=== PATIENT | female | born 1985 ===

== ENCOUNTER 2021-01-17 13:17 | Inpatient (IN) | payer OTHER ==
[2021-01-17] MEDS ORDERED: Lorazepam 2 MG/ML VIAL ONE ×2 (13:37→13:43)
[2021-01-17 13:44] LABS: #Basophils 0.1 thou/uL (0.0-0.2); #Eosinphils 0.1 thou/uL (0.0-0.7); #Lymphocytes 2.6 thou/uL (1.20-3.40); #Monocytes 0.5 thou/uL (0.11-0.59); #Neutrophils 6.7 thou/uL (1.40-6.50); %Basophils 1.2 % (0.0-1.0); %Eosinophils 1.5 % (0.0-10.0); %Lymphocytes 26.1 % (21.0-51.0); %Monocytes 4.8 % (0.0-10.0); %Neutrophils 66.4 % (42.0-75.0); Hemoglobin 12.8 g/dL (12.0-16.0); Mean Corpuscular HGB CONC 33.9 g/dL (32.0-36.0); Mean Corpuscular Hemoglobin 31.9 pg (27.0-31.0); Mean Corpuscular Volume 94.3 fL (78.0-98.0); Mean Platelet Volume 9.3 fL (7.4-10.4); Platelet Count 149 thou/uL (130-400); RBC Distribution Width 11.7 % (11.5-14.5); White Blood Cell (WBC) Count 10.1 thou/uL (4.8-10.8)
[2021-01-17 13:47] LABS: Actual Bicarbonate (HCO3a) 17.2 mEq/L (22-28); Analyzer IN Cardio ER; Base Excess (BEa) -6.7 mEq/L (-2.0 to +3.0); CO2 Tension 29.7 mmHg (35.0-45.0); Calcium, Ionized (arterial) 1.16 mmol/L (1.12-1.30); Carboxyhemoglobin (COHb) 2.4 gm% (0.0-3.0); Hemoglobin (Hb) 13.1 g/dL (12.0-16.0); O2 Tension (PaO2), arterial 238.6 mmHg (80.0-100.0); Potassium - ABG Lab 3.03 mmol/L (3.70-5.30); pH, Arterial 7.38 (7.35-7.45)
[2021-01-17 13:48] LABS: ALV-art Gradient 9.475 mmHg (0-20); Puncture Site RRA
[2021-01-17] MEDS ORDERED: Magnesium 2 GM/50 ML BAG (IN WATER) ONE (13:48)
[2021-01-17 13:57] LABS: BHCG - Serum Negative (NEGATIVE); Pregs Control Background? CLEAR/WHITE (CLR/WHITE); Pregs Control Bar Appear? YES (CONTROL BAR)
[2021-01-17 14:07] LABS: Acetaminophen Less than 6.0 mcg/mL (10.0-30.0); Alcohol Less than 10 mg/dL (Less than 10); Salicylate Less than 8.0 mg/dL (15.0-30.0)
[2021-01-17 14:08] LABS: ALT (SGPT) 15 U/L (8-55); AST (SGOT) 20 U/L (5-34); Albumin 4.5 g/dL (3.5-5.0); Alkaline Phosphatase 64 U/L (40-110); Anion Gap 15 mmol/L (10-20); BUN (Urea Nitrogen) 11 mg/dL (7.0-18.7); Bilirubin, Total 0.9 mg/dL (0.2-1.2); CK (CPK) 243 U/L (29-168); Calc. Creatinine Clearance 0 mL/min (70-130); Calcium 9.8 mg/dL (7.8-10.44); Carbon Dioxide 18 mmol/L (22-29); Chloride 108 mmol/L (98-107); Globulin 3.1 g/dL (2.4-3.5); Glucose 116 mg/dL (70-105); Potassium 3.2 mmol/L (3.5-5.1); Protein, Total 7.6 g/dL (6.0-8.3); Sodium 138 mmol/L (136-145)
[2021-01-17 14:23] LABS: Amphetamine Not Detected (NotDetected); Barbiturates Screen Not Detected (NotDetected); Benzodiazepine Screen Detected (NotDetected); Cocaine Metabolite Screen Not Detected (NotDetected); Medtox Control Line Valid? VALID (VALID); Medtox Reader # READER 4; Methadone Not Detected (NotDetected); Methamphetamine Not Detected (NotDetected); Opiate Screen Not Detected (NotDetected); Oxycodone Screen Not Detected (NotDetected); Phencyclidine (PCP) Not Detected (NotDetected); THC/Cannabinoid Screen Detected (NotDetected); Tricyclic Screen Detected (NotDetected)
[2021-01-17] MEDS ORDERED: Succinylcholine 200 MG/10 ml SYRINGE FS ONE (15:05)
[2021-01-17] MEDS ORDERED: Ondansetron PF 4 MG/2 ML Vial ONE (15:05)
[2021-01-17] MEDS ORDERED: Potassium Bicarbonate/Cit Ac 25 MEQ TAB ONE ×2 (15:07)
[2021-01-17] MEDS ORDERED: Acetaminophen 325 MG TAB PO PRN (15:14)
[2021-01-17] MEDS ORDERED: HYDROcodone/Acetaminophen 5/325 mg Tablet PO PRN (15:14)
[2021-01-17] MEDS ORDERED: Ondansetron PF 4 MG/2 ML Vial IVP PRN (15:14)
[2021-01-17] MEDS ORDERED: Senokot S 8.6-50 MG TAB PO PRN (15:14)
[2021-01-17] MEDS ORDERED: HUMULIN R 100 UNITS in Sodium Chloride 0.9% 100 ML IVPB SCH (15:30)
[2021-01-17 16:08] LABS: SARS-CoV-2 NAA Rapid Test Not Detected (NotDetected)
[2021-01-17] MEDS: Sodium Chloride 0.9% 1,000 ML IV SCH ×2 (17:31→22:37)
[2021-01-17 17:34] VITALS: BMI 18.9
[2021-01-17] MEDS ORDERED: Electrolyte Replacement Protocol 1 EACH FS PRN (17:45)
[2021-01-17] MEDS: Famotidine/PF 20 mg/2ml Vial SLOW IVP SCH (21:14)
[2021-01-17 22:29] LABS: Anion Gap 9 mmol/L (10-20); BUN (Urea Nitrogen) 8 mg/dL (7.0-18.7); Calc. Creatinine Clearance 95 mL/min (70-130); Calcium 8.8 mg/dL (7.8-10.44); Carbon Dioxide 21 mmol/L (22-29); Chloride 113 mmol/L (98-107); Glucose 86 mg/dL (70-105); Potassium 3.5 mmol/L (3.5-5.1); Sodium 139 mmol/L (136-145)
[2021-01-17] MEDS: Potassium Chloride 20 MEQ in Premix Bag 1 BAG IVPB SCH (23:10)
[2021-01-18] MEDS: Potassium Chloride 20 MEQ in Premix Bag 1 BAG IVPB SCH ×3 (01:15→08:20)
[2021-01-18 04:19] LABS: ALT (SGPT) 14 U/L (8-55); AST (SGOT) 18 U/L (5-34); Albumin 3.8 g/dL (3.5-5.0); Alkaline Phosphatase 54 U/L (40-110); Anion Gap 11 mmol/L (10-20); BUN (Urea Nitrogen) 7 mg/dL (7.0-18.7); Bilirubin, Total 1.2 mg/dL (0.2-1.2); Calc. Creatinine Clearance 88 mL/min (70-130); Calcium 9.1 mg/dL (7.8-10.44); Carbon Dioxide 18 mmol/L (22-29); Chloride 114 mmol/L (98-107); Globulin 2.6 g/dL (2.4-3.5); Glucose 89 mg/dL (70-105); Magnesium 1.9 mg/dL (1.6-2.6); Potassium 3.8 mmol/L (3.5-5.1); Protein, Total 6.4 g/dL (6.0-8.3); Sodium 139 mmol/L (136-145)
[2021-01-18 04:49] LABS: Band 13 % (5-11); Eosinophils 3 % (0-10); Hemoglobin 11.2 g/dL (12.0-16.0); Lymphocytes 13 % (21-51); MDiff Complete? YES; Mean Corpuscular HGB CONC 32.8 g/dL (32.0-36.0); Mean Corpuscular Hemoglobin 30.8 pg (27.0-31.0); Mean Corpuscular Volume 93.8 fL (78.0-98.0); Mean Platelet Volume 9.5 fL (7.4-10.4); Monocytes 6 % (0-10); Neutrophil 64 % (42-75); Platelet Count 150 thou/uL (130-400); RBC Distribution Width 11.7 % (11.5-14.5); Red Blood Cell (RBC) Count 3.62 mill/uL (4.20-5.40); White Blood Cell (WBC) Count 12.1 thou/uL (4.8-10.8)
[2021-01-18] MEDS: Sodium Chloride 0.9% 1,000 ML IV SCH ×3 (04:49→22:47)
[2021-01-18] MEDS ORDERED: Magnesium 2 GM/50 ML 2 GM in Premix Bag 1 BAG IVPB SCH (05:45)
[2021-01-18 09:03] LABS: Chloride 113 mmol/L (98-107); Potassium 4.1 mmol/L (3.5-5.1); Sodium 138 mmol/L (136-145)
[2021-01-18 09:04] LABS: Calcium 9.3 mg/dL (7.8-10.44); Glucose 98 mg/dL (70-105)
[2021-01-18 09:06] LABS: Anion Gap 10 mmol/L (10-20); Carbon Dioxide 19 mmol/L (22-29)
[2021-01-18 09:07] LABS: Calc. Creatinine Clearance 89 mL/min (70-130)
[2021-01-18 09:08] LABS: BUN (Urea Nitrogen) 5 mg/dL (7.0-18.7)
[2021-01-18] MEDS: Famotidine/PF 20 mg/2ml Vial SLOW IVP SCH ×2 (09:41→21:50)
[2021-01-18] MEDS: Enoxaparin Sodium 40 MG/0.4 ML SYRINGE SC SCH (09:41)
[2021-01-18] MEDS ORDERED: Lorazepam 2 MG/ML VIAL ONE (10:17)
[2021-01-18] MEDS ORDERED: Lorazepam 2 MG/ML VIAL SLOW IVP SCH (10:45)
[2021-01-18 13:27] LABS: Anion Gap 12 mmol/L (10-20); BUN (Urea Nitrogen) 4 mg/dL (7.0-18.7); Calc. Creatinine Clearance 94 mL/min (70-130); Calcium 9.5 mg/dL (7.8-10.44); Carbon Dioxide 18 mmol/L (22-29); Chloride 112 mmol/L (98-107); Glucose 102 mg/dL (70-105); Sodium 138 mmol/L (136-145)
[2021-01-18 17:31] LABS: Anion Gap 17 mmol/L (10-20); BUN (Urea Nitrogen) 4 mg/dL (7.0-18.7); Calc. Creatinine Clearance 89 mL/min (70-130); Carbon Dioxide 14 mmol/L (22-29); Chloride 111 mmol/L (98-107); Glucose 94 mg/dL (70-105); Potassium 5.2 mmol/L (3.5-5.1); Sodium 137 mmol/L (136-145)
[2021-01-18 21:47] LABS: Anion Gap 15 mmol/L (10-20); BUN (Urea Nitrogen) 4 mg/dL (7.0-18.7); Calc. Creatinine Clearance 84 mL/min (70-130); Carbon Dioxide 16 mmol/L (22-29); Chloride 110 mmol/L (98-107); Glucose 97 mg/dL (70-105); Potassium 3.8 mmol/L (3.5-5.1); Sodium 137 mmol/L (136-145)
[2021-01-18] MEDS: Citalopram 20 MG TAB PO SCH (21:50)
[2021-01-18] MEDS: traZODone HCl 50 MG TAB PO SCH (21:51)
[2021-01-18] MEDS ORDERED: Lorazepam 0.5 MG TAB PO SCH (23:15)
[2021-01-18] MEDS ORDERED: Ziprasidone 20 MG VIAL IM SCH ×2 (23:30→23:45)
[2021-01-18] MEDS ORDERED: Sterile Water 10 ML VIAL FS SCH (23:30)
[2021-01-19 02:20] LABS: Anion Gap 11 mmol/L (10-20); BUN (Urea Nitrogen) 5 mg/dL (7.0-18.7); Calc. Creatinine Clearance 93 mL/min (70-130); Carbon Dioxide 19 mmol/L (22-29); Chloride 111 mmol/L (98-107); Glucose 89 mg/dL (70-105); Potassium 3.7 mmol/L (3.5-5.1); Sodium 137 mmol/L (136-145)
[2021-01-19 03:44] LABS: Calcium 9.1 mg/dL (7.8-10.44)
[2021-01-19 05:57] LABS: Anion Gap 11 mmol/L (10-20); BUN (Urea Nitrogen) 6 mg/dL (7.0-18.7); Calc. Creatinine Clearance 88 mL/min (70-130); Calcium 8.5 mg/dL (7.8-10.44); Carbon Dioxide 19 mmol/L (22-29); Chloride 113 mmol/L (98-107); Glucose 84 mg/dL (70-105); Potassium 3.8 mmol/L (3.5-5.1); Sodium 139 mmol/L (136-145)
[2021-01-19] MEDS ORDERED: Magnesium 2 GM/50 ML 2 GM in Premix Bag 1 BAG IVPB SCH (06:30)
[2021-01-19] MEDS: Sodium Chloride 0.9% 1,000 ML IV SCH (06:56)
[2021-01-19] MEDS: Enoxaparin Sodium 40 MG/0.4 ML SYRINGE SC SCH (09:05)
[2021-01-19] MEDS: Famotidine/PF 20 mg/2ml Vial SLOW IVP SCH (09:05)
[2021-01-19 10:38] LABS: Anion Gap 12 mmol/L (10-20); BUN (Urea Nitrogen) 6 mg/dL (7.0-18.7); Calc. Creatinine Clearance 80 mL/min (70-130); Calcium 8.7 mg/dL (7.8-10.44); Carbon Dioxide 19 mmol/L (22-29); Chloride 110 mmol/L (98-107); Glucose 137 mg/dL (70-105); Potassium 3.7 mmol/L (3.5-5.1); Sodium 137 mmol/L (136-145)
[2021-01-19 13:43] LABS: Anion Gap 13 mmol/L (10-20); BUN (Urea Nitrogen) 7 mg/dL (7.0-18.7); Calc. Creatinine Clearance 81 mL/min (70-130); Calcium 8.8 mg/dL (7.8-10.44); Carbon Dioxide 19 mmol/L (22-29); Chloride 107 mmol/L (98-107); Glucose 122 mg/dL (70-105); Potassium 3.8 mmol/L (3.5-5.1); Sodium 135 mmol/L (136-145)
[2021-01-19 17:13] LABS: Anion Gap 13 mmol/L (10-20); BUN (Urea Nitrogen) 8 mg/dL (7.0-18.7); Calc. Creatinine Clearance 81 mL/min (70-130); Calcium 9.2 mg/dL (7.8-10.44); Carbon Dioxide 19 mmol/L (22-29); Chloride 107 mmol/L (98-107); Glucose 106 mg/dL (70-105); Potassium 3.9 mmol/L (3.5-5.1); Sodium 135 mmol/L (136-145)
[2021-01-19 21:40] LABS: Anion Gap 11 mmol/L (10-20); BUN (Urea Nitrogen) 9 mg/dL (7.0-18.7); Calc. Creatinine Clearance 84 mL/min (70-130); Carbon Dioxide 20 mmol/L (22-29); Chloride 107 mmol/L (98-107); Glucose 101 mg/dL (70-105); Potassium 4.1 mmol/L (3.5-5.1); Sodium 134 mmol/L (136-145)
[2021-01-19] MEDS: Famotidine 20 MG TAB PO SCH (21:41)
[2021-01-19] MEDS: traZODone HCl 50 MG TAB PO SCH (21:41)
[2021-01-19] MEDS: Citalopram 20 MG TAB PO SCH (21:41)
[2021-01-20 01:33] LABS: Anion Gap 12 mmol/L (10-20); BUN (Urea Nitrogen) 9 mg/dL (7.0-18.7); Calc. Creatinine Clearance 84 mL/min (70-130); Calcium 8.9 mg/dL (7.8-10.44); Carbon Dioxide 20 mmol/L (22-29); Chloride 108 mmol/L (98-107); Glucose 105 mg/dL (70-105); Sodium 136 mmol/L (136-145)
[2021-01-20] MEDS: Famotidine/PF 20 mg/2ml Vial SLOW IVP SCH (02:24)
[2021-01-20 06:08] LABS: Anion Gap 11 mmol/L (10-20); BUN (Urea Nitrogen) 9 mg/dL (7.0-18.7); Calc. Creatinine Clearance 77 mL/min (70-130); Calcium 9.4 mg/dL (7.8-10.44); Carbon Dioxide 24 mmol/L (22-29); Chloride 106 mmol/L (98-107); Glucose 96 mg/dL (70-105); Potassium 4.2 mmol/L (3.5-5.1); Sodium 137 mmol/L (136-145)
[2021-01-20] MEDS ORDERED: Magnesium 2 GM/50 ML 2 GM in Premix Bag 1 BAG IVPB SCH (06:45)
[2021-01-20 08:21] VITALS: BP 115/55; TEMP 98.7
[2021-01-20] MEDS: Famotidine 20 MG TAB PO SCH (08:45)
[2021-01-20] MEDS: Enoxaparin Sodium 40 MG/0.4 ML SYRINGE SC SCH (08:46)
[2021-01-20 09:05] LABS: Anion Gap 11 mmol/L (10-20); BUN (Urea Nitrogen) 9 mg/dL (7.0-18.7); Calc. Creatinine Clearance 77 mL/min (70-130); Calcium 9.4 mg/dL (7.8-10.44); Carbon Dioxide 22 mmol/L (22-29); Chloride 106 mmol/L (98-107); Glucose 129 mg/dL (70-105); Potassium 3.8 mmol/L (3.5-5.1); Sodium 135 mmol/L (136-145)
[2021-01-20 16:46] LABS: Anion Gap 13 mmol/L (10-20); BUN (Urea Nitrogen) 11 mg/dL (7.0-18.7); Calc. Creatinine Clearance 77 mL/min (70-130); Calcium 9.8 mg/dL (7.8-10.44); Carbon Dioxide 23 mmol/L (22-29); Chloride 104 mmol/L (98-107); Glucose 91 mg/dL (70-105); Sodium 136 mmol/L (136-145)
[2021-01-20 17:52] LABS: Anion Gap 13 mmol/L (10-20); BUN (Urea Nitrogen) 11 mg/dL (7.0-18.7); Calc. Creatinine Clearance 72 mL/min (70-130); Calcium 9.5 mg/dL (7.8-10.44); Carbon Dioxide 21 mmol/L (22-29); Chloride 106 mmol/L (98-107); Glucose 113 mg/dL (70-105); Potassium 3.4 mmol/L (3.5-5.1); Sodium 137 mmol/L (136-145)
== END 2021-01-20 20:15 | disposition short-term general hospital (02) | DRG 917 ==
LOC: ERS 13:17 → CCU 15:08 → 2SE 01-18 12:37
PROVIDERS: ADMIT Family Medicine; ATTEND Hospitalist
PROC: 0BH17EZ Insertion of Endotracheal Airway into Trachea, Via Natural or Artificial Opening (ICD-10-PCS; principal; 2021-01-17)
PROC: 5A1945Z Respiratory Ventilation, 24-96 Consecutive Hours (ICD-10-PCS; 2021-01-17)
DX: T43.591A Poisoning by other antipsychotics and neuroleptics, accidental (unintentional), initial encounter (principal); J96.01 Acute respiratory failure with hypoxia; F31.9 Bipolar disorder, unspecified; F41.9 Anxiety disorder, unspecified; Z81.8 Family history of other mental and behavioral disorders; I45.81 Long QT syndrome; F19.10 Other psychoactive substance abuse, uncomplicated
CPT/HCPCS: 0240U; 31500; 36415; 36600; 51702; 71045; 80048; 80053; 80306; 80307; 82550; 82805; 83735; 84484; 84703; 85007; 85025; 85027; 93005; 93010; 94002; 94003; 94150; 96365; 96366; 96367; 96375; 99292; J1650; J2060; J2250; J2405; J3475; J3480; J3486; J3490; J7030; S0028

== ENCOUNTER 2021-04-25 00:33 | Emergency (ER) | payer OTHER | END 2021-04-25 01:43 | LOC: ERS 00:33 | DX: S80.812A Abrasion, left lower leg, initial encounter (principal); Z04.1 Encounter for examination and observation following transport accident; Z79.899 Other long term (current) drug therapy; V89.2XXA Person injured in unspecified motor-vehicle accident, traffic, initial encounter | CPT/HCPCS: 99281 ==